=== PATIENT | female | born 1985 | race Caucasian/White ===

== ENCOUNTER → 2018-02-06 08:52 | Outpatient (CLI) | payer OTHER, SELFPAY ==
--- NOTE | 2018-02-06 08:59 | HTC.HP4 ---
- Problem List (1) Von Willebrand disease Status: Chronic Subjective Date of Service:: 02/06/18 Chief Complaint: Von Willebrand disease annual follow-up History of Present Illness: Patient was von Willebrand disease uses DDAVP nasal spray as needed for heavy menses. Has a history of iron deficiency anemia and is on oral iron replacement Power of Fighting Vehicle Infantryman: No Living Will: No Health History: Past Medical History Past Medical History: Bleeding disorder Past Surgical History Surgical: Unremarkable Family History Maternal Past Medical History: Bleeding disorder Allergies/Adverse Reactions: Allergy/AdvReac Type Severity Reaction Status Date / Time aspirin AdvReac Severe BLEEDING Verified 02/06/18 09:40 Risk Factors Social History Smoking Status Never smoker Tobacco Risk Data: Tobacco Risk Smoking Status Never smoker Type of tobacco: Smokeless tobacco usage: Items/Day: Year started: Years used: Counseled to quit/cut down: Reason for no counseling performed: Reason for no pharmacotherapy: Tobacco use comments: Passive smoke exposure: Substance Risk Drug use: Caffeine use [drinks/day]: Alcohol use: Type of alcohol: Drinks per day: Has patient felt the need to cut down: Has the patient been annoyed by complaints: Has the patient felt guilty about drinking: Has the patient needed an eye crisis therapist in the mornings: Comments: Review of Systems Constitutional:: Denies: Fever, Sweats, Weight loss, Appetite change, Chills Cardiovascular:: Denies: Chest pain, Palpitations, Dyspnea on exertion, Orthopnea, PND, Shortness of breath Respiratory: Denies: Cough, Hemoptysis, Shortness of Breath, Wheezing Gastrointestinal:: Denies: Abdominal pain, Nausea, Vomiting, Diarrhea, Constipation, Hematochezia Genitourinary: Reports: Menorrhagia - Menses last 3-4 days. Denies: Dysuria, Hematuria, Flank pain Musculoskeletal:: Denies: Back pain, Myalgia, Arthralgia Skin: Denies: Rash, Skin Changes, Wounds Neurological:: Denies: Headache, Dizziness, Visual changes, Tinnitus, Hearing loss Psychiatric: Denies: Anxiety, Depression, Homicidal Ideations, Suicidal Ideations - Physical Exam General: Alert, Oriented x3, No apparent distress HEENT: Atraumatic, PERRLA, EOMI, Normocephalic Oropharynx:: Dry mucosa Neck:: Supple, Trachea midline. Negative for: JVD, bilateral Cardiac:: Regular rate, Regular rhythm, Normal S1, Normal S2. Negative for: Murmur Lungs: Clear to auscultation, Excusion symmetrical. Negative for: Rhonchi, Wheezes Abdomen:: Bowel sounds x 4, Soft, Non-tender, Non-distended. Negative for: Hepatosplenomegaly Extremities:: Negative for: Cyanosis, Edema Neurological: Neuro grossly intact Skin:: Negative for: Lesions, Rash, Petechiae, Ecchymosis Psychiatric:: Appropriate affect, Euthymic Lymphatics:: Negative for: Cervical lymphadenopathy, Supraclavicular lymphadenopathy, Axillary lymphadenopathy Assessment and Plan #1 von Willebrand disease on as needed DDAVP nasal spray for heavy menses stable, follow-up in 1 year. #2 Iron deficiency anemia on replacement advised one iron tablet orally till menopause Primary Care Provider: Alma Villeda MD Referring Provider: Lincoln Hess MD
[2018-02-06 09:41] VITALS: BP 102/68; PULSE 73; RESP 14; TEMP 36.8; O2SAT 98
== END ==
PROVIDERS: Visit Provider Internal Medicine Hematology & Oncology
DX: D68.0 Von Willebrand disease (principal); D50.9 Iron deficiency anemia, unspecified

== ENCOUNTER 2019-02-05 09:59 | Outpatient (CLI) | payer OTHER, SELFPAY ==
[2019-02-05 10:23] VITALS: BP 94/60; PULSE 74; RESP 16; TEMP 36.6; O2SAT 99; BMI 20.2
--- NOTE | 2019-02-05 10:25 | HTC.HP_ITS ---
- Problem List (1) Von Willebrand disease Status: Chronic Subjective Date of Service:: 02/05/19 Chief Complaint: VWD F/U History of Present Illness: VWD mild, annual F/U No Rx needed Seen dentist Power of Carbon Dioxide Operator: No Living Will: No Health History: Past Medical History Past Medical History: Bleeding disorder Past Surgical History Surgical: Unremarkable Family History Maternal Past Medical History: Bleeding disorder Family History (Last Updated 02/05/19 @ 10:21 by Jackelyn Lowe) Other Von Willebrand disease Social History Smoking Status Never smoker Allergies/Adverse Reactions: Allergy/AdvReac Type Severity Reaction Status Date / Time aspirin AdvReac Severe BLEEDING Verified 02/05/19 10:22 Risk Factors Social History Smoking Status Never smoker Tobacco Risk Data: Tobacco Risk Smoking Status Never smoker Type of tobacco: Smokeless tobacco usage: Items/Day: Year started: Years used: Counseled to quit/cut down: Reason for no counseling performed: Reason for no pharmacotherapy: Tobacco use comments: Passive smoke exposure: Substance Risk Drug use: Caffeine use [drinks/day]: Alcohol use: Type of alcohol: Drinks per day: Has patient felt the need to cut down: Has the patient been annoyed by complaints: Has the patient felt guilty about drinking: Has the patient needed an eye product coordinator in the mornings: Comments: Review of Systems Constitutional:: Denies: Fever, Sweats, Weight loss, Appetite change, Chills Cardiovascular:: Denies: Chest pain, Palpitations, Dyspnea on exertion, Orthopnea, PND, Shortness of breath Respiratory: Denies: Cough, Hemoptysis, Shortness of Breath, Wheezing Gastrointestinal:: Denies: Abdominal pain, Nausea, Vomiting, Diarrhea, Constipation, Hematochezia Genitourinary: Reports: - - Menses not heavy. Denies: Dysuria, Hematuria, Flank pain Musculoskeletal:: Denies: Back pain, Myalgia, Arthralgia Skin: Denies: Rash, Skin Changes, Wounds Neurological:: Denies: Headache, Dizziness, Visual changes, Tinnitus, Hearing loss Psychiatric: Denies: Anxiety, Depression, Homicidal Ideations, Suicidal Ideations - Physical Exam General: Alert, Oriented x3, No apparent distress HEENT: Atraumatic, PERRLA, EOMI, Normocephalic Oropharynx:: Dry mucosa Neck:: Supple, Trachea midline. Negative for: JVD, bilateral Cardiac:: Regular rate, Regular rhythm, Normal S1, Normal S2. Negative for: Murmur Lungs: Clear to auscultation, Excusion symmetrical. Negative for: Rhonchi, Wheezes Abdomen:: Soft, Non-tender, Non-distended. Negative for: Hepatosplenomegaly Extremities:: Negative for: Cyanosis, Edema Neurological: Neuro grossly intact Skin:: Negative for: Lesions, Rash, Petechiae, Ecchymosis Psychiatric:: Appropriate affect, Euthymic Lymphatics:: Negative for: Cervical lymphadenopathy, Supraclavicular lymphadenopathy Assessment and Plan VWD annual screening visit. Reviewed: - On-demand therapy. -History of iron deficiency anemia secondary to heavy menses, on oral iron. - Appropriate oral hygiene and regular dental care is essential. - An appropriate exercise regimen encouraged for maintenance of a healthy weight, cardiovascular risk reduction, and positive effects on strength, flexibility, balance, joint stabilization, bone density, socialization, and psychological health. - Medicines that increase the risk of bleeding should be avoided namely anticoagulants, aspirin, and other nonsteroidal anti-inflammatory drugs (NSAIDs). - Herbal remedies and [id number] supplements such as fish oil, may increase bleeding risk. - Pain can be treated with local measures (eg, cold packs, immobilization, splinting), and acetaminophen. - Cardiovascular disease prevention : focus on diet, exercise, smoking avoidance, and control of hypertension and hypercholesterolemia. - Planning for invasive procedures and elective surgery. Patient was also evaluated by the Hemophilia multidisciplinary team on site and Dr Hess via video conferencing. Primary Care Provider: Alma Villeda MD Referring Provider: Lincoln Hess MD
== END 2019-02-05 11:00 | disposition home or self-care (01) ==
PROVIDERS: Referring Provider Internal Medicine Hematology & Oncology; Visit Provider Internal Medicine Medical Oncology
DX: D68.0 Von Willebrand disease (principal)